=== PATIENT | female | born 1970 | race Caucasian/White ===

== ENCOUNTER 2017-05-02 21:34 | Emergency (ER) | payer SELFPAY ==
[~2017-05-02] VITALS: Ht 160 cm; Wt 90.0 kg
[~2017-05-02 21:34] MED LIST: HYDR-762 PO; IBUP-1542 PO; ZOF8 PO
[2017-05-02 21:45] VITALS: Ht 160 cm; Wt 90.0 kg
== END 2017-05-02 23:32 | disposition left against medical advice (07) ==
LOC: E/R 21:34
DX: Z53.21 Procedure and treatment not carried out due to patient leaving prior to being seen by health care provider (principal)